=== PATIENT | female | born 1965 | race Caucasian/White ===

== ENCOUNTER 2017-10-29 11:07 | Emergency (ER) | payer BC ==
[2017-10-29 13:00] VITALS: BP 143/78
--- NOTE | 2017-10-29 13:32 | UC ---
Dental HPI - HPI Summary HPI Summary: right upper gum swelling has two decayed molars that she waiting until November ( after school is finished) - History of Current Complaint Chief Complaint: UCDentalProblem Stated Complaint: ORAL COMPLAINT Time Seen by Provider: 10/29/17 13:27 Hx Obtained From: Patient ?: No Onset/Duration: Gradual Onset, Lasting Days, Worse Since - past 2-3 days Severity: Mild Pain Intensity: 4 Pain Scale Used: 0-10 Numeric Alleviating Factor(s): Nothing Related History: Previous Dental Care on Same Tooth, Swelling - Allergies/Home Medications Allergies/Adverse Reactions: Allergies Allergy/AdvReac Type Severity Reaction Status Date / Time No Known Allergies Allergy Verified 10/29/17 13:00 Home Medications: Home Medications Cyanocobalamin INJ * [Vitamin B12 INJ *] 1,000 mcg IM MONTHLY 10/29/17 [History Confirmed 10/29/17] PMH/Surg Hx/FS Hx/Imm Hx Previously Healthy: Yes - Surgical History Surgical History: Yes Surgery Procedure, Year, and Place: ORIF LEFT FIBULA. OVARIAN CYST REMOVAL. TONISLLECTOMY - Family History Known Family History: Positive: Cardiac Disease - Social History Occupation: Employed Full-time Lives: With Family Alcohol Use: Occasionally Substance Use Type: None Smoking Status (MU): Never Smoked Tobacco Have You Smoked in the Last Year: No Review of Systems Constitutional: Negative Skin: Negative Eyes: Negative ENT: Dental Pain - pain and swelling right upper gum Respiratory: Negative Cardiovascular: Negative Gastrointestinal: Negative Genitourinary: Negative Motor: Negative Neurovascular: Negative Musculoskeletal: Negative Neurological: Negative Psychological: Negative Is Patient Immunocompromised?: No All Other Systems Reviewed And Are Negative: Yes Physical Exam Triage Information Reviewed: Yes Appearance: Well-Appearing, No Pain Distress, Well-Nourished Vital Signs: Initial Vital Signs Temp 97.7 F 10/29/17 12:51 Pulse 57 10/29/17 12:51 Resp 16 10/29/17 12:51 BP 143/78 10/29/17 12:51 Pulse Ox 100 10/29/17 12:51 Vital Signs Reviewed: Yes Eye Exam: Normal Eyes: Positive: Conjunctiva Clear ENT Exam: Normal ENT: Positive: Normal ENT inspection, Hearing grossly normal, Pharynx normal, TMs normal, Dental tenderness, Uvula midline. Negative: Nasal congestion, Trismus, Muffled voice, Hoarse voice, Sinus tenderness Dental Exam: Other Dental: Positive: Percussion Tenderness @ - right upper molars, Gross Decay/ Caries @ - right upper molars, Abscess @ - right upper gum Neck exam: Normal Neck: Positive: Supple, Nontender, No Lymphadenopathy Respiratory Exam: Normal Respiratory: Positive: Chest non-tender, Lungs clear, Normal breath sounds, No respiratory distress, No accessory muscle use Cardiovascular Exam: Normal Cardiovascular: Positive: RRR, No Murmur, Pulses Normal, Brisk Capillary Refill Musculoskeletal Exam: Normal Musculoskeletal: Positive: Strength Intact, ROM Intact, No Edema Neurological Exam: Normal Neurological: Positive: Alert, Muscle Tone Normal Psychological Exam: Normal Skin Exam: Normal Dental Complaint Course/Dx - Course Course Of Treatment: warm compress, amoxicillin, tylenol/ibuprofen follow with dentist - Differential Dx/Diagnosis Provider Diagnoses: elevated bp without dx of hypertension,, dental abscess right upper gum Discharge - Sign-Out/Discharge Documenting (check all that apply): Discharge/Admit/Transfer - Discharge Plan Condition: Stable Disposition: HOME Prescriptions: Amoxicillin PO (*) [Amoxicillin 500 MG CAP*] 500 mg PO TID 10 Days #30 cap Patient Education Materials: Dental Abscess (ED), Hypertension (ED), Warm Compress or Soak (ED) Referrals: Sujatha Astorga MD [Primary Care Provider] - 2 Weeks Additional Instructions: Follow with dentist as planned - Billing Disposition and Condition Condition: STABLE Disposition: HOME
== END 2017-10-29 13:45 | disposition home or self-care (01) ==
LOC: UCCORT 11:07
DX: K05.219 Aggressive periodontitis, localized, unspecified severity (principal); R03.0 Elevated blood-pressure reading, without diagnosis of hypertension
CPT/HCPCS: 99211; G0463

== ENCOUNTER 2018-03-08 13:08 | Emergency (ER) | payer BC ==
[2018-03-08 13:34] VITALS: BP 163/79
--- NOTE | 2018-03-08 13:57 | UC ---
Skin Complaint HPI - HPI Summary HPI Summary: Patient presents complaining of some soreness to her left arm, left arm pit and left scapular area for the past 4 days. "it feels like a sunburn". Today, she noted a small area for rash to her left upper arm. 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 She is here to have the area checked. She has no associated fever or malaise. She denies any overuse of that arm. She has had chickenpox as a child but has never had shingles. She denies any associated contact with weeds and has no other complaints. Patient works alone out of her office and is not exposed to the children. - History of Current Complaint Chief Complaint: UCSkin Stated Complaint: SKIN COMPLAINT Hx Obtained From: Patient Onset/Duration: Gradual Onset Timing: Constant Pain Intensity: 0 Aggravating Factor(s): Nothing Alleviating Factor(s): Nothing Associated Signs & Symptoms: Positive: Rash - Allergy/Home Medications Allergies/Adverse Reactions: Allergies Allergy/AdvReac Type Severity Reaction Status Date / Time No Known Allergies Allergy Verified 03/08/18 13:28 Home Medications: Home Medications Aspirin/Acetaminophen/Caffeine [Excedrin Migraine Caplet] 1 each PO ONCE PRN 06/13 [History Confirmed 03/08/18] Review of Systems Constitutional: Negative Skin: Rash Eyes: Negative ENT: Negative Respiratory: Negative Cardiovascular: Negative Gastrointestinal: Negative Genitourinary: Negative Motor: Negative Neurovascular: Negative Musculoskeletal: Negative Neurological: Negative Psychological: Negative Is Patient Immunocompromised?: No All Other Systems Reviewed And Are Negative: Yes PMH/Surg Hx/FS Hx/Imm Hx Neurological History: Migraine - Surgical History Surgical History: Yes Surgery Procedure, Year, and Place: ORIF LEFT FIBULA. OVARIAN CYST REMOVAL. TONISLLECTOMY - Family History Known Family History: Positive: Cardiac Disease - Social History Occupation: Employed Full-time Lives: With Family Alcohol Use: None Substance Use Type: None Smoking Status (MU): Never Smoked Tobacco Have You Smoked in the Last Year: No - Immunization History Vaccination Up to Date: Yes Physical Exam Triage Information Reviewed: Yes Appearance: Well-Appearing Vital Signs: Initial Vital Signs Temp 98 F 03/08/18 13:29 Pulse 64 03/08/18 13:29 Resp 16 03/08/18 13:29 BP 163/79 03/08/18 13:29 Pulse Ox 100 03/08/18 13:29 Vital Signs Reviewed: Yes Eyes: Positive: Conjunctiva Clear ENT: Positive: Pharynx normal, TMs normal. Negative: Nasal congestion, Nasal drainage Neck: Positive: Supple, Nontender, No Lymphadenopathy Respiratory: Positive: Lungs clear, Normal breath sounds Cardiovascular: Positive: RRR, No Murmur Abdomen Description: Positive: Nontender, No Organomegaly, Soft Bowel Sounds: Positive: Present Musculoskeletal: Positive: ROM Intact Neurological: Positive: Alert Psychological: Positive: Age Appropriate Behavior Skin Exam: Normal, Other - The left upper arm has a small cluster of tiny linear vesicles. The skin of her left upper extremity and her trunk was Almazan for additional exam and there is no other rash. Course/Dx - Course Course Of Treatment: Repaet BP 142/74. Will have it rechecked on f/u. The rash is not typical of shingles it is a small patch of linear vesicles which raises concern for a contact dermatitis; however, the history of the vague discomfort in the area does raise concern for shingles. I'm going to start the patient on Famvir in the event that this is early onset of shingles and more larger vesicles evolve plus I'm going to treat the local rash with a topical steroid cream as it is itching. Patient is been advised that if this rash continues to evolve that she should stop the steroid cream immediately. She's been advised to seek close follow up with her primary care physician for recheck as well. Patient works out of an isolated office the second did not remove her from work - Diagnoses Provider Diagnoses: Acute rash left upper arm. Possible viral exanthem versus contact dermatitis. Discharge - Sign-Out/Discharge Documenting (check all that apply): Patient Departure All imaging exams completed and their final reports reviewed: No Studies - Discharge Plan Condition: Stable Disposition: HOME Prescriptions: Famciclovir(NF) [Famvir(NF)] 500 mg PO TID #21 tab Triamcinolone 0.1% CREAM (NF) [Kenalog 0.1% Cream (NF)] 1 applic .SEE ORDER BID 7 Days #1 applic Patient Education Materials: Shingles (ED), Acute Rash (ED) Referrals: Sujatha Astorga MD [Primary Care Provider] - 5 Days - Billing Disposition and Condition Condition: STABLE Disposition: Home
== END 2018-03-08 14:05 | disposition home or self-care (01) ==
LOC: UCCORT 13:08
DX: R21 Rash and other nonspecific skin eruption (principal)
CPT/HCPCS: 99212; G0463

== ENCOUNTER 2018-03-12 17:15 | Emergency (ER) | payer BC ==
--- OUTSIDE RECORDS SUMMARY | 2018-03-12 17:39 | XMS REPORT ---
:1965 External Reference #:[id number] Author Organization [facility] Address [address], [address] [place] [address] Phone [phone] Care Team Providers Name Role Phone Sujatha Astorga MD Care Team Information Deck Cadet Unavailable Sujatha Astorga MD Primary Care Physician Unavailable Payers Type Date Identification Numbers Payment Provider Subscriber Commercial Effective: Policy Number: Brayan Light 2009 [id number] Group Name: [employer] Enhanced Benefits [address] [address] PayID: [id number] KVNG Saeed [id number] Workers Compensation Group Name: Workers Amanda Light Compensation PayID: [id number] [address] [address] [place] [address] Problems Date Description Provider Status Onset: 11/19/2016 Iron deficiency Shayy Kulkarni DO Active Onset: 11/19/2016 Anemia Shayy Kulkarni DO Active Onset: 11/24/2016 Screening for malignant neoplasm of Pal Chen MD Active colon Onset: 11/30/2016 Iron deficiency anemia Shayy Kulkarni DO Active Onset: 11/30/2016 Vitamin D deficiency Shayy Kulkarni DO Active Onset: 11/30/2016 Vitamin B deficiency Shayy Kulkarni DO Active Onset: 01/05/2017 Diaphragmatic hernia Pal Chen MD Active Onset: 01/05/2017 Gastroduodenitis Pal Chen MD Active Onset: 01/05/2017 Duodenitis Pal Chen MD Active Onset: 01/05/2017 Benign neoplasm of colon Pal Chen MD Active Onset: 01/05/2017 Diverticular disease of colon Pal Chen MD Active Onset: 01/05/2017 First degree hemorrhoids Pal Chen MD Active Onset: 02/11/2017 Abdominal pain Pal Chen MD Active Onset: 02/11/2017 Nausea and vomiting Pal Chen MD Active Onset: 04/01/2017 Abdominal tenderness of left lower Pal Chen MD Active quadrant Onset: 04/01/2017 Vascular insufficiency of intestine Pal Chen MD Active Family History Date Family Member(s) Problem(s) Comments General Non Contributory Father Hypertension Mother Hypertension Mother Hypothyroidism Social History Type Date Description Comments Marital Status Patient is Home Environment Lives Alone 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 Working Smokeless Tobacco Never Used Smokeless Tobacco ETOH Use Rarely consumes alcohol Smoking Patient denies history of smoking Recreational Drug Use Denies Drug Use Daily Caffeine Consumes on average 4 cups of regular coffee per day Allergies, Adverse Reactions, Alerts Date Description Reaction Status Severity Comments 11/19/2016 NKDA active Medications Medication Date Status Form Strength Qnty SIG Indications Ordering Provider Pantoprazole 12/21/ Active Tablets DR 20mg 90tabs 1 by mouth Pal Sodium 2016 every day MD Gustavo every morning Iron Infusions / Active prn Unknown 0000 Ondansetron 02/11/ Hx Tablets 4mg 90tabs 1 tab by R11.2 Pal 2016 - Dispers mouth three MD Gustavo 06/15/ times a day 2016 as needed Vitamin D 11/30/ Hx Capsules [id number] 6caps 1 cap by Boufal, (Ergocalcifero 2017 mouth once Shayy, l) a week DO No Active 11/24/ Hx Unknown Medications 2016 - 2016 Golytely 11/24/ Hx Solution 236gm 4000ml drink half Z12.11 Pal 2016 - Rec the evening MD Gustavo 01/04/ before and 2017 half the morning of the procedure (1 cup every 10') Dulcolax 11/24/ Hx Tablets DR 5mg 4tabs 4 tablets Z12.11 Pal 2016 - taken a 8pm MD Gustavo 01/04/ the day 2016 before the procedure Magnesium 11/24/ Hx Solution 1.745GM/30 296ml 1 bottle po Z12.11 Pal Citrate 2016 - ML x one as MD Gustavo 01/04/ directed 2017 Ferrous / Hx Tablets 325(65Fe) 1 by mouth Unknown Sulfate 0000 mg every day Medications Administered in Office Medication Date Status Form Strength Qnty SIG Indications Ordering Provider Vitamin B12 Administered Injection Boufal, Injection 1000 017 Shayy, mcg/Ml DO Vitamin B12 Administered Injection Boufal, Injection 1000 017 Shayy, mcg/Ml DO Vital Signs Date Vital Result Comment 08/17/2017 BP Systolic 155 mmHg BP Diastolic 80 mmHg Body Temperature 97.6 F Heart Rate 68 /min Respiratory Rate 16 /min Weight 166.00 lb O2 % BldC Oximetry 97 % Pain Level 0 06/15/2017 BP Systolic 140 mmHg BP Diastolic 84 mmHg Body Temperature 96.8 F Heart Rate 53 /min Weight 167.12 lb O2 % BldC Oximetry 97 % 04/01/2017 BP Systolic Sitting Left Arm 122 mmHg BP Diastolic Sitting Left Arm 76 mmHg Heart Rate 57 /min Respiratory Rate 16 /min Height 65 inches 5'5" Weight 183.00 lb BMI (Body Mass Index) 30.4 kg/m2 BSA (Body Surface Area) 1.90 m2 [place] body weight in kilograms 57 02/15/2017 BP Systolic 126 mmHg BP Diastolic 77 mmHg Body Temperature 97.7 F Heart Rate 56 /min Weight 190.12 lb O2 % BldC Oximetry 96 % 02/11/2017 BP Systolic Sitting Left Arm 150 mmHg BP Diastolic Sitting Left Arm 90 mmHg Heart Rate 56 /min Respiratory Rate 16 /min Height 64 inches 5'4" Weight 193.00 lb BMI (Body Mass Index) 33.1 kg/m2 BSA (Body Surface Area) 1.93 m2 [place] body weight in kilograms 54 02/01/2017 BP Systolic 140 mmHg BP Diastolic 69 mmHg Body Temperature 98.6 F Heart Rate 55 /min Respiratory Rate 20 /min O2 % BldC Oximetry 95 % Pain Level 0 01/25/2017 BP Systolic 149 mmHg BP Diastolic 76 mmHg Body Temperature 98.6 F Heart Rate 59 /min Respiratory Rate 18 /min O2 % BldC Oximetry 95 % Pain Level 0 01/05/2017 BP Systolic Sitting Left Arm 120 mmHg BP Diastolic Sitting Left Arm 72 mmHg Heart Rate 69 /min Respiratory Rate 16 /min Height 66 inches 5'6" Weight 201.00 lb BMI (Body Mass Index) 32.4 kg/m2 BSA (Body Surface Area) 2.00 m2 [place] body weight in kilograms 59 01/04/2017 BP Systolic 141 mmHg BP Diastolic 84 mmHg Body Temperature 97.7 F Heart Rate 73 /min Weight 200.12 lb O2 % BldC Oximetry 96 % 11/30/2016 BP Systolic 155 mmHg BP Diastolic 89 mmHg Body Temperature 97.1 F Heart Rate 66 /min Weight 202.25 lb O2 % BldC Oximetry 96 % 11/24/2016 BP Systolic Sitting Left Arm 138 mmHg BP Diastolic Sitting Left Arm 82 mmHg Heart Rate 76 /min Respiratory Rate 16 /min Height 64.5 inches 5'4.50" Weight 199.00 lb BMI (Body Mass Index) 33.6 kg/m2 BSA (Body Surface Area) 1.96 m2 [place] body weight in kilograms 56 11/19/2016 BP Systolic 130 mmHg BP Diastolic 78 mmHg Body Temperature 98.1 F Heart Rate 67 /min Respiratory Rate 16 /min Height 64.5 inches 5'4.50" Weight 201.00 lb BMI (Body Mass Index) 34.0 kg/m2 BSA (Body Surface Area) 1.97 m2 [place] body weight in kilograms 56 O2 % BldC Oximetry 95 % Results Test Date Test Result H/L Range Note CBS W/Automated Diff 08/17/2017 White Blood Count 7.5 K/uL 3.1-10.7 1 Red Blood Count 4.61 M/uL 3.90-5.40 1 Hemoglobin 14.1 gm/dL 11.6-15.8 1 Hematocrit 42.2 % 36.0-46.1 1 Mean Cell Volume 91.5 fl 80.9-99.0 1 Mean Corpuscular HGB 30.6 pg 25.9-32.7 1 Mean Corpuscular HGB Conc 33.4 g/dL 30.8-34.3 1 Platelet Count 265 K/uL 155-360 1 Red Cell Distri Width SD 43.4 fl 3-47 1 Red Cell Distri Width %CV 13.3 % 11.7-14.4 1 Mean Platelet Volume 10.2 fL 8.9-12.4 1 Neut% 50.7 % 40.4-72.8 1 Lymph % 41.1 % 20.0-42.0 1 Lea % 6.4 % 4.3-13.2 1 Eo% 1.5 % 0.0-6.6 1 Bas% 0.3 % 0.0-1.1 1 Neut# 3.82 K/uL 1.8-7.0 1 Lymph # 3.09 K/uL 1.0-4.0 1 Lea # 0.48 K/uL 0.3-0.9 1 Eos # 0.11 K/uL 0.0-0.5 1 Baso # 0.02 K/uL 0.0-0.1 1 Comprehensive Metabolic Panel 08/17/2017 Glucose 84 mg/dL 74-106 1 BUN 17 mg/dL 7-18 1 Creatinine 0.7 mg/dL 0.6-1.3 1 Glom Filtration Rate, Estimate >60 mL/min >60 1 If >60 mL/min >60 1, 2 BUN/Creat 24.2 ratio 1 Sodium 143 mmol/L 136-145 1 Potassium 4.1 mmol/L 3.5-5.1 1 Chloride 108 mmol/L High 98-107 1 Carbon Dioxide 29 mmol/L 21-32 1 Anion Gap 6 mEq/L Low 8-16 1 Calcium 9.1 mg/dL 8.5-10.1 1 Total Protein 7.6 g/dL 6.4-8.2 1 Albumin 3.7 g/dL 3.4-5.0 1 Globulin 3.9 g/dL 1.9-4.3 1 Alb/Glob 0.9 ratio 1 Bilirubin,Total 0.3 mg/dL 0.2-1.0 1 Sgot/Ast 14 U/L Low 15-37 1, 3 SGPT/Alt 14 U/L 12-78 1 Alkaline Phosphatase 93 U/L 45-117 1 Iron-Tibc-%Sat 08/17/2017 Serum Iron 74 g/dL 50-170 1 Total Iron Binding Capacity 326 g/dL 250-450 1 Transferrin %Saturation 23 % 12-57 1 Laboratory test finding 08/17/2017 Ferritin 27 ng/mL 8-252 1 Vitamin B12 And Folate 08/17/2017 Vitamin B12 615 pg/mL 193-986 1 Folic Acid 16.0 ng/mL 3.1-17.5 1 Laboratory test 08/17/2017 Vitamin D,25-Hydroxy 24.4 ng/mL Low 30.0-100.0 1, 4 finding Laboratory test 04/01/2017 C1 Esterase Inhibitor > 86 %meanno . 5, 6 finding Function C1 Esterase Inhibitor 35 mg/dL 21-39 5 Complement C4, Serum 37 mg/dL 14-44 5 C-Reactive Protein,Quant < 2.9 mg/L <3.0 5 Sedimentation Rate 11 mm/hr 0-30 5, 7 Vitamin B12 And Folate 03/22/2017 Vitamin B12 1123 pg/mL High 193-986 8 Folic Acid 29.6 ng/mL High 3.1-17.5 8 Laboratory test finding 03/22/2017 Ferritin 57 ng/mL 8-252 8 Iron-Tibc-%Sat 03/22/2017 Serum Iron 99 g/dL 50-170 8 Total Iron Binding Capacity 319 g/dL 250-450 8 Transferrin %Saturation 31 % 12-57 8 Comprehensive Metabolic Panel 03/22/2017 Glucose 79 mg/dL 74-106 8 BUN 13 mg/dL 7-18 8 Creatinine 0.8 mg/dL 0.6-1.3 8 Glom Filtration Rate, Estimate >60 mL/min >60 8 If >60 mL/min >60 8, 9 BUN/Creat 16.2 ratio 8 Sodium 141 mmol/L 136-145 8 Potassium 4.8 mmol/L 3.5-5.1 8 Chloride 107 mmol/L 98-107 8 Carbon Dioxide 28 mmol/L 21-32 8 Anion Gap 6 mEq/L Low 8-16 8 Calcium 9.5 mg/dL 8.5-10.1 8 Total Protein 8.1 g/dL 6.4-8.2 8 Albumin 3.8 g/dL 3.4-5.0 8 Globulin 4.3 g/dL 1.9-4.3 8 Alb/Glob 0.9 ratio 8 Bilirubin,Total 0.4 mg/dL 0.2-1.0 8 Sgot/Ast 17 U/L 15-37 8 SGPT/Alt 20 U/L 12-78 8 Alkaline Phosphatase 103 U/L 45-117 8 CBS W/Automated Diff 03/22/2017 White Blood Count 7.5 K/uL 3.1-10.7 8 Red Blood Count 5.04 M/uL 3.90-5.40 8 Hemoglobin 14.9 gm/dL 11.6-15.8 8 Hematocrit 45.7 % 36.0-46.1 8 Mean Cell Volume 90.7 fl 80.9-99.0 8 Mean Corpuscular HGB 29.6 pg 25.9-32.7 8 Mean Corpuscular HGB Conc 32.6 g/dL 30.8-34.3 8 Platelet Count 238 K/uL 150-400 8 Red Cell Distri Width SD 47.2 fl High 3-47 8 Red Cell Distri Width %CV 14.8 % High 11.7-14.4 8 Mean Platelet Volume 11.2 fL 8.9-12.4 8 Neut% 58.4 % 40.4-72.8 8 Lymph % 32.7 % 20.0-42.0 8 Lea % 6.9 % 4.3-13.2 8 Eo% 1.9 % 0.0-6.6 8 Bas% 0.1 % 0.0-1.1 8 Neut# 4.39 K/uL 1.8-7.0 8 Lymph # 2.46 K/uL 1.0-4.0 8 Lea # 0.52 K/uL 0.3-0.9 8 Eos # 0.14 K/uL 0.0-0.5 8 Baso # 0.01 K/uL 0.0-0.1 8 CBS W/Automated Diff 03/21/2017 White Blood Count 5.5 K/uL 3.1-10.7 10 Red Blood Count 5.02 M/uL 3.90-5.40 10 Hemoglobin 14.7 gm/dL 11.6-15.8 10 Hematocrit 45.3 % 36.0-46.1 10 Mean Cell Volume 90.2 fl 80.9-99.0 10 Mean Corpuscular HGB 29.3 pg 25.9-32.7 10 Mean Corpuscular HGB Conc 32.5 g/dL 30.8-34.3 10 Platelet Count 246 K/uL 150-400 10 Red Cell Distri Width SD 46.6 fl 3-47 10 Red Cell Distri Width %CV 14.4 % 11.7-14.4 10 Mean Platelet Volume 10.8 fL 8.9-12.4 10 Neut% 51.0 % 40.4-72.8 10 Lymph % 40.7 % 20.0-42.0 10 Lea % 6.1 % 4.3-13.2 10 Eo% 2.0 % 0.0-6.6 10 Bas% 0.2 % 0.0-1.1 10 Neut# 2.78 K/uL 1.8-7.0 10 Lymph # 2.22 K/uL 1.0-4.0 10 Lea # 0.33 K/uL 0.3-0.9 10 Eos # 0.11 K/uL 0.0-0.5 10 Baso # 0.01 K/uL 0.0-0.1 10 CBS W/Automated Diff 02/11/2017 White Blood Count 6.7 K/uL 3.1-10.7 11 Red Blood Count 4.83 M/uL 3.90-5.40 11 Hemoglobin 14.1 gm/dL 11.6-15.8 11 Hematocrit 43.3 % 36.0-46.1 11 Mean Cell Volume 89.6 fl 80.9-99.0 11 Mean Corpuscular HGB 29.2 pg 25.9-32.7 11 Mean Corpuscular HGB Conc 32.6 g/dL 30.8-34.3 11 Platelet Count 261 K/uL 150-400 11 Red Cell Distri Width SD 47.1 fl High 3-47 11 Red Cell Distri Width %CV 15.3 % High 11.7-14.4 11 Mean Platelet Volume 10.8 fL 8.9-12.4 11 Neut% 54.7 % 40.4-72.8 11 Lymph % 37.5 % 20.0-42.0 11 Lea % 6.5 % 4.3-13.2 11 Eo% 1.0 % 0.0-6.6 11 Bas% 0.3 % 0.0-1.1 11 Neut# 3.68 K/uL 1.8-7.0 11 Lymph # 2.53 K/uL 1.0-4.0 11 Lea # 0.44 K/uL 0.3-0.9 11 Eos # 0.07 K/uL 0.0-0.5 11 Baso # 0.02 K/uL 0.0-0.1 11 Comprehensive Metabolic Panel 02/11/2017 Glucose 77 mg/dL 74-106 11 BUN 13 mg/dL 7- 11 Creatinine 0.7 mg/dL 0.6-1.3 11 Glom Filtration Rate, Estimate >60 mL/min >60 11 If >60 mL/min >60 11, 12 BUN/Creat 18.5 ratio 11 Sodium 140 mmol/L 136-145 11 Potassium 4.1 mmol/L 3.5-5.1 11 Chloride 107 mmol/L 98-107 11 Carbon Dioxide 24 mmol/L 21-32 11 Anion Gap 9 mEq/L 8-16 11 Calcium 9.4 mg/dL 8.5-10.1 11 Total Protein 8.3 g/dL High 6.4-8.2 11 Albumin 4.0 g/dL 3.4-5.0 11 Globulin 4.3 g/dL 1.9-4.3 11 Alb/Glob 0.9 ratio 11 Bilirubin,Total 0.3 mg/dL 0.2-1.0 11 Sgot/Ast 9 U/L Low 15-37 11, 13 SGPT/Alt 19 U/L 12-78 11 Alkaline Phosphatase 95 U/L 45-117 11 Iron-Tibc-%Sat 02/11/2017 Serum Iron 59 g/dL 50-170 11 Total Iron Binding Capacity 341 g/dL 250-450 11 Transferrin %Saturation 17 % 12-57 11 Laboratory test finding 02/11/2017 Ferritin 75 ng/mL 8-252 11 Vitamin B12 And Folate 02/11/2017 Vitamin B12 821 pg/mL 193-986 11 Folic Acid 38.4 ng/mL High 3.1-17.5 11 Vitamin B12 And Folate 01/25/2017 Vitamin B12 965 pg/mL 193-986 14 Folic Acid 27.5 ng/mL High 3.1-17.5 14 CBS W/Automated Diff 01/25/2017 White Blood Count 6.9 K/uL 3.1-10.7 14 Red Blood Count 4.61 M/uL 3.90-5.40 14 Hemoglobin 13.3 gm/dL 11.6-15.8 14 Hematocrit 41.4 % 36.0-46.1 14 Mean Cell Volume 89.8 fl 80.9-99.0 14 Mean Corpuscular HGB 28.9 pg 25.9-32.7 14 Mean Corpuscular HGB Conc 32.1 g/dL 30.8-34.3 14 Platelet Count 264 K/uL 150-400 14 Red Cell Distri Width SD 49.5 fl High 3-47 14 Red Cell Distri Width %CV 16.8 % High 11.7-14.4 14 Mean Platelet Volume 10.4 fL 8.9-12.4 14 Neut% 57.3 % 40.4-72.8 14 Lymph % 34.5 % 20.0-42.0 14 Lea % 6.3 % 4.3-13.2 14 Eo% 1.6 % 0.0-6.6 14 Bas% 0.3 % 0.0-1.1 14 Neut# 3.94 K/uL 1.8-7.0 14 Lymph # 2.37 K/uL 1.0-4.0 14 Lea # 0.43 K/uL 0.3-0.9 14 Eos # 0.11 K/uL 0.0-0.5 14 Baso # 0.02 K/uL 0.0-0.1 14 Comprehensive Metabolic Panel 01/25/2017 Glucose 87 mg/dL 74-106 14 BUN 11 mg/dL 7-18 14 Creatinine 0.7 mg/dL 0.6-1.3 14 Glom Filtration Rate, Estimate >60 mL/min >60 14 If >60 mL/min >60 14, 15 BUN/Creat 15.7 ratio 14 Sodium 140 mmol/L 136-145 14 Potassium 4.0 mmol/L 3.5-5.1 14 Chloride 106 mmol/L 98-107 14 Carbon Dioxide 28 mmol/L 21-32 14 Anion Gap 6 mEq/L Low 8-16 14 Calcium 9.3 mg/dL 8.5-10.1 14 Total Protein 8.1 g/dL 6.4-8.2 14 Albumin 3.7 g/dL 3.4-5.0 14 Globulin 4.4 g/dL High 1.9-4.3 14 Alb/Glob 0.8 ratio 14 Bilirubin,Total 0.3 mg/dL 0.2-1.0 14 Sgot/Ast 17 U/L 15-37 14 SGPT/Alt 22 U/L 12-78 14 Alkaline Phosphatase 101 U/L 45-117 14 Iron-Tibc-%Sat 01/25/2017 Serum Iron 53 g/dL 50-170 14 Total Iron Binding Capacity 380 g/dL 250-450 14 Transferrin %Saturation 14 % 12-57 14 Laboratory test finding 01/25/2017 Ferritin 62 ng/mL 8-252 14 Laboratory test finding 12/27/2016 LDH 149 U/L 84-246 16 Reticulocyte 12/27/2016 Retic % 0.8 % 0.5-1.8 16 Count,Automated Homocyst(E)Ine, P/S 12/27/2016 Homocyst(e)ine, P/S 8.7 umol/L 0.0-15.0 16, 17 Laboratory test finding 12/27/2016 Vitamin 39.3 ng/mL 30.0-100.0 16, 18 D,25-Hydroxy Methylmalonic Acid (S) 79 nmol/L 0-378 16, 19 Vitamin B12 And Folate 12/27/2016 Vitamin B12 513 pg/mL 193-986 16 Folic Acid 45.2 ng/mL High 3.1-17.5 16 Laboratory test finding 12/27/2016 Ferritin 14 ng/mL 8-252 16 Iron-Tibc-%Sat 12/27/2016 Serum Iron 35 g/dL Low 50-170 16 Total Iron Binding Capacity 403 g/dL 250-450 16 Transferrin %Saturation 9 % Low 12-57 16 Comprehensive Metabolic Panel 12/27/2016 Glucose 72 mg/dL Low 74-106 16 BUN 14 mg/dL 7-18 16 Creatinine 0.6 mg/dL 0.6-1.3 16 Glom Filtration Rate, Estimate >60 mL/min >60 16 If >60 mL/min >60 16, 20 BUN/Creat 23.3 ratio 16 Sodium 142 mmol/L 136-145 16 Potassium 4.0 mmol/L 3.5-5.1 16 Chloride 108 mmol/L High 98-107 16 Carbon Dioxide 27 mmol/L 21-32 16 Anion Gap 7 mEq/L Low 8-16 16 Calcium 8.9 mg/dL 8.5-10.1 16 Total Protein 7.9 g/dL 6.4-8.2 16 Albumin 3.6 g/dL 3.4-5.0 16 Globulin 4.3 g/dL 1.9-4.3 16 Alb/Glob 0.8 ratio 16 Bilirubin,Total 0.3 mg/dL 0.2-1.0 16 Sgot/Ast 14 U/L Low 15-37 16, 21 SGPT/Alt 20 U/L 12-78 16 Alkaline Phosphatase 106 U/L 45-117 16 CBS W/Automated Diff 12/27/2016 White Blood Count 6.8 K/uL 3.1-10.7 16 Red Blood Count 4.64 M/uL 3.90-5.40 16 Hemoglobin 12.7 gm/dL 11.6-15.8 16 Hematocrit 40.3 % 36.0-46.1 16 Mean Cell Volume 86.9 fl 80.9-99.0 16 Mean Corpuscular HGB 27.4 pg 25.9-32.7 16 Mean Corpuscular HGB Conc 31.5 g/dL 30.8-34.3 16 Platelet Count 314 K/uL 150-400 16 Red Cell Distri Width SD 67.0 fl High 3-47 16 Red Cell Distri Width %CV 21.3 % High 11.7-14.4 16 Mean Platelet Volume 10.0 fL 8.9-12.4 16 Neut% 56.6 % 40.4-72.8 16 Lymph % 34.8 % 20.0-42.0 16 Lea % 6.9 % 4.3-13.2 16 Eo% 1.6 % 0.0-6.6 16 Bas% 0.1 % 0.0-1.1 16 Neut# 3.86 K/uL 1.8-7.0 16 Lymph # 2.38 K/uL 1.0-4.0 16 Lea # 0.47 K/uL 0.3-0.9 16 Eos # 0.11 K/uL 0.0-0.5 16 Baso # 0.01 K/uL 0.0-0.1 16 Laboratory test finding 11/24/2016 LDH 175 U/L 84-246 22 Slide Review (SEE NOTE) 22, 23 Reticulocyte Count,Automated 11/24/2016 Retic % 1.1 % 0.5-1.8 22 Celiac Disease Comp AB Profile 11/24/2016 Immunoglobulin A 423 mg/dL High 87-352 24 Antigliadin Abs, IgG 4 units 0-19 24, 25 Antigliadin Abs, IgA 8 units 0-19 24, 26 Endomysial IgA Antibody Negative Negative 24 t-Transglutaminase IgA <2 U/mL 0-3 24, 27 t-Transglutaminase IgG <2 U/mL 0-5 24, 28 CBS W/Automated Diff 11/24/2016 White Blood Count 5.7 K/uL 3.1-10.7 29 Red Blood Count 4.76 M/uL 3.90-5.40 29 Hemoglobin 11.9 gm/dL 11.6-15.8 29 Hematocrit 39.5 % 36.0-46.1 29 Mean Cell Volume 83.0 fl 80.9-99.0 29 Mean Corpuscular HGB 25.0 pg Low 25.9-32.7 29 Mean Corpuscular HGB Conc 30.1 g/dL Low 30.8-34.3 29 Platelet Count 347 K/uL 150-400 29 Red Cell Distri Width SD 82.4 fl High 3-47 29 Red Cell Distri Width %CV 28.1 % High 11.7-14.4 29 Mean Platelet Volume 9.9 fL 8.9-12.4 29 Neut% 54.6 % 40.4-72.8 29 Lymph % 36.7 % 20.0-42.0 29 Lea % 6.1 % 4.3-13.2 29 Eo% 2.1 % 0.0-6.6 29 Bas% 0.5 % 0.0-1.1 29 Neut# 3.11 K/uL 1.8-7.0 29 Lymph # 2.09 K/uL 1.0-4.0 29 Lea # 0.35 K/uL 0.3-0.9 29 Eos # 0.12 K/uL 0.0-0.5 29 Baso # 0.03 K/uL 0.0-0.1 29 Comprehensive Metabolic Panel 11/24/2016 Glucose 87 mg/dL 74-106 29 BUN 16 mg/dL 7-18 29 Creatinine 0.7 mg/dL 0.6-1.3 29 Glom Filtration Rate, Estimate >60 mL/min >60 29 If >60 mL/min >60 29, 30 BUN/Creat 22.8 ratio 29 Sodium 143 mmol/L 136-145 29 Potassium 4.3 mmol/L 3.5-5.1 29 Chloride 109 mmol/L High 98-107 29 Carbon Dioxide 26 mmol/L 21-32 29 Anion Gap 8 mEq/L 8-16 29 Calcium 8.9 mg/dL 8.5-10.1 29 Total Protein 7.5 g/dL 6.4-8.2 29 Albumin 3.6 g/dL 3.4-5.0 29 Globulin 3.9 g/dL 1.9-4.3 29 Alb/Glob 0.9 ratio 29 Bilirubin,Total 0.3 mg/dL 0.2-1.0 29 Sgot/Ast 13 U/L Low 15-37 29, 31 SGPT/Alt 21 U/L 12-78 29 Alkaline Phosphatase 96 U/L 45-117 29 Iron-Tibc-%Sat 11/24/2016 Serum Iron 48 g/dL Low 50-170 29 Total Iron Binding Capacity 413 g/dL 250-450 29 Transferrin %Saturation 12 % 12-57 29 Laboratory test finding 11/24/2016 Ferritin 49 ng/mL 8-252 29 Vitamin B12 And Folate 11/24/2016 Vitamin B12 429 pg/mL 193-986 29 Folic Acid 17.7 ng/mL High 3.1-17.5 29 Homocyst(E)Ine, P/S 11/24/2016 Homocyst(e)ine, P/S 8.2 umol/L 0.0-15.0 29, 32 Laboratory test 11/24/2016 Vitamin D,25-Hydroxy 18.7 ng/mL Low 30.0-100.0 29, 33 finding Methylmalonic Acid (S) 105 nmol/L 0-378 29, 34 CBC 11/10/2016 White Blood Count 7.5 K/uL 3.1-10.7 35 Red Blood Count 3.97 M/uL 3.90-5.40 35 Hemoglobin 8.9 gm/dL Low 11.6-15.8 35 Hematocrit 29.8 % Low 36.0-46.1 35 Mean Cell Volume 75.1 fl Low 80.9-99.0 35 Mean Corpuscular HGB 22.4 pg Low 25.9-32.7 35 Mean Corpuscular HGB Conc 29.9 g/dL Low 30.8-34.3 35 Platelet Count 374 K/uL 150-400 35 Red Cell Distri Width %CV 21.8 % High 11.7-14.4 35 Mean Platelet Volume 10.0 fL 8.9-12.4 35 Hct VFr Bld Auto 11/10/2016 Hct VFr Bld Auto 29.8 Low 36.0-46.1 Hgb Bld-mCnc 11/10/2016 Hgb Bld-mCnc 8.9 Low 11.6-15.8 MCH RBC Qn Auto 11/10/2016 MCH RBC Qn Auto 22.4 Low 25.9-32.7 MCHC RBC Auto-mCnc 11/10/2016 MCHC RBC Auto-mCnc 29.9 Low 30.8-34.3 MCV RBC Auto 11/10/2016 MCV RBC Auto 75.1 Low 80.9-99.0 PMV Bld Auto 11/10/2016 PMV Bld Auto 10.0 8.9-12.4 Platelets [#/volume] in 11/10/2016 Platelets [#/volume] in 374 150-400 Blood by Automated count Blood by Automated count RBC # Bld Auto 11/10/2016 RBC # Bld Auto 3.97 3.90-5.40 RDW RBC Auto-Rto 11/10/2016 RDW RBC Auto-Rto 21.8 High 11.7-14.4 WBC # Bld Auto 11/10/2016 WBC # Bld Auto 7.5 3.1-10.7 CBC 11/09/2016 White Blood Count 8.0 K/uL 3.1-10.7 35 Red Blood Count 3.58 M/uL Low 3.90-5.40 35 Hemoglobin 7.9 gm/dL Low 11.6-15.8 35 Hematocrit 26.9 % Low 36.0-46.1 35 Mean Cell Volume 75.1 fl Low 80.9-99.0 35 Mean Corpuscular HGB 22.1 pg Low 25.9-32.7 35 Mean Corpuscular HGB Conc 29.4 g/dL Low 30.8-34.3 35 Platelet Count 384 K/uL 150-400 35 Red Cell Distri Width %CV 21.7 % High 11.7-14.4 35 Mean Platelet Volume 9.7 fL 8.9-12.4 35 Laboratory test finding 11/09/2016 Troponin-I < 0.015 ng/mL 35, 36 CBC 11/09/2016 White Blood Count 7.1 K/uL 3.1-10.7 35 Red Blood Count 3.31 M/uL Low 3.90-5.40 35 Hemoglobin 7.3 gm/dL Low 11.6-15.8 35 Hematocrit 25.0 % Low 36.0-46.1 35 Mean Cell Volume 75.5 fl Low 80.9-99.0 35 Mean Corpuscular HGB 22.1 pg Low 25.9-32.7 35 Mean Corpuscular HGB Conc 29.2 g/dL Low 30.8-34.3 35 Platelet Count 406 K/uL High 150-400 35 Red Cell Distri Width %CV 22.5 % High 11.7-14.4 35 Mean Platelet Volume 9.7 fL 8.9-12.4 35 Basic Metabolic Panel 11/09/2016 Glucose 100 mg/dL 74-106 35 BUN 14 mg/dL 7-18 35 Creatinine 0.7 mg/dL 0.6-1.3 35 Glom Filtration Rate, Estimate >60 mL/min >60 35 If >60 mL/min >60 35, 37 BUN/Creat 20.0 ratio 35 Sodium 143 mmol/L 136-145 35 Potassium 4.3 mmol/L 3.5-5.1 35 Chloride 111 mmol/L High 98-107 35 Carbon Dioxide 27 mmol/L 21-32 35 Anion Gap 5 mEq/L Low 8-16 35 Calcium 8.8 mg/dL 8.5-10.1 35 Laboratory test 11/09/2016 Troponin-I < 0.015 35, 38 finding ng/mL Sodium SerPl-sCnc 11/09/2016 Sodium SerPl-sCnc 143 136-145 Potassium SerPl-sCnc 11/09/2016 Potassium SerPl-sCnc 4.3 3.5-5.1 Anion Gap SerPl-sCnc 11/09/2016 Anion Gap SerPl-sCnc 5 Low 8-16 BUN SerPl-mCnc 11/09/2016 BUN SerPl-mCnc 14 7-18 BUN/Creat SerPl 11/09/2016 BUN/Creat SerPl 20.0 Co2 SerPl-sCnc 11/09/2016 Co2 SerPl-sCnc 27 21-32 Calcium SerPl-mCnc 11/09/2016 Calcium SerPl-mCnc 8.8 8.5-10.1 Chloride SerPl-sCnc 11/09/2016 Chloride SerPl-sCnc 111 High 98-107 Glucose 11/09/2016 Glucose 100 74-106 [Mass/volume] in [Mass/volume] in Serum or Plasma Serum or Plasma Creat SerPl-mCnc 11/09/2016 Creat SerPl-mCnc 0.7 0.6-1.3 Monocytes/100 11/08/2016 Monocytes/100 9 0-10 leukocytes in Blood leukocytes in Blood by Manual count by Manual count Neutrophils # Bld 11/08/2016 Neutrophils # Bld 5.37 1.8-7.0 Auto Auto Neuts [place] NFr 11/08/2016 Neuts [place] NFr 1 0-8 Bld Manual Bld Manual Neuts Seg/leuk NFr 11/08/2016 Neuts Seg/leuk NFr 52 33-73 Bld Manual Bld Manual Polychromasia Bld Ql 11/08/2016 Polychromasia Bld Ql 2+ Smear Smear Prot SerPl-mCnc 11/08/2016 Prot SerPl-mCnc 6.9 6.4-8.2 Prothrombin time 11/08/2016 Prothrombin time 14.1 12.0-14.4 RDW RBC Auto 11/08/2016 RDW RBC Auto 48.5 High 3-47 Serum or plasma 11/08/2016 Serum or plasma 60 26-192 creatine kinase creatine kinase measurement (enzym measurement (enzymatic activity/volume) Serum or plasma iron 11/08/2016 Serum or plasma iron 472 High 250-450 binding capacity binding capacity measurement measurement (mass/volume) Total Cells Counted 11/08/2016 Total Cells Counted 100 Bld Bld Unloinc 11/08/2016 Unloinc Diff Ordered Activated partial 11/08/2016 Activated partial 30.9 23.4-35.0 thromboplastin time thromboplastin time (aPTT) in pl (aPTT) in platelet poor plasma by coagulation assay Alt SerPl-cCnc 11/08/2016 Alt SerPl-cCnc 23 12-78 Alp SerPl-cCnc 11/08/2016 Alp SerPl-cCnc 92 45-117 Stool occult blood 11/08/2016 Stool occult blood Negative Negative Albumin SerPl-mCnc 11/08/2016 Albumin SerPl-mCnc 3.4 3.4-5.0 Albumin/Glob SerPl 11/08/2016 Albumin/Glob SerPl 1.0 Aspartate 11/08/2016 Aspartate 10 Low 15-37 aminotransferase aminotransferase [Enzymatic [Enzymatic activity/vol activity/volume] in Serum or Plasma Basophils [#/volume] 11/08/2016 Basophils [#/volume] 0.03 0.0-0.1 in Blood by in Blood by Automated count Automated count Bilirub SerPl-mCnc 11/08/2016 Bilirub SerPl-mCnc 0.2 0.2-1.0 Blood anisocytosis 11/08/2016 Blood anisocytosis 2+ detection by light detection by light microscopy microscopy Blood hypochromia 11/08/2016 Blood hypochromia 2+ detection by light detection by light microscopy microscopy Blood microcytes 11/08/2016 Blood microcytes 2+ detection by light detection by light microscopy microscopy Blood ovalocytes 11/08/2016 Blood ovalocytes 1+ detection by light detection by light microscopy microscopy Blood platelet 11/08/2016 Blood platelet Slight adequacy detection adequacy detection Increase by light microsc by light microscopy Blood poikilocytosis 11/08/2016 Blood poikilocytosis 1+ detection by light detection by light microscopy microscopy Eosinophil # Bld 11/08/2016 Eosinophil # Bld 0.16 0.0-0.5 Auto Auto Eosinophil % 11/08/2016 Eosinophil % 1 0-5 Globulin Ser 11/08/2016 Globulin Ser 3.5 1.9-4.3 Calc-mCnc Calc-mCnc Inr 11/08/2016 Inr 1.1 0.9-1.1 Iron SerPl-mCnc 11/08/2016 Iron SerPl-mCnc 15 Low 50-170 Iron saturation 11/08/2016 Iron saturation 3 Low 12-57 [Mass Fraction] in [Mass Fraction] in Serum or Plasma Serum or Plasma Lymphocytes 11/08/2016 Lymphocytes 2.81 1.0-4.0 [#/volume] in Blood [#/volume] in Blood by Automated count by Automated count Lymphocytes/100 11/08/2016 Lymphocytes/100 37 20-42 leukocytes in Blood leukocytes in Blood by Manual coun by Manual count Monocytes # Bld Auto 11/08/2016 Monocytes # Bld Auto 0.62 0.3-0.9 1 E61.1 E53.9 D64.9 2 Note: Persistent reduction for 3 months or more in an eGFR <60 mL/min/1.73 m2 defines CKD. Patients with eGFR values >/=60 mL/min/1.73 m2 may also have CKD if evidence of persistent proteinuria is present. The original MDRD equation for estimated GFR is not valid for patients less than 18 years of age. Additional information may be found at www.kdoqi.org. 3 Values below the stated reference ranges of AST and ALT can be seen in normal populations. Clinical correlation is suggested. 4 Vitamin D deficiency has been defined by the [place] [employer] and an Endocrine Society practice guideline as a level of serum 25-OH vitamin D less than 20 ng/mL (1,2). The Endocrine Society went on to further define vitamin D insufficiency as a level between 21 and 29 ng/mL (2). 1. IOM ([place] [employer]). 2010. Dietary reference intakes for calcium and D. [place]: The National Academies Press. 2. Chidi MF, Radha PAYNE, Evelyne HAHN, et al. Evaluation, treatment, and prevention of vitamin D deficiency: an Endocrine Society clinical practice guideline. JCEM. 2010; 96(7):1911-30. Performed at: [facility] [address], [place] [id number] [employer] Layer: Maria Dolores Mario MD, Phone: [phone] 5 R10.682 6 INFCE Result Units: %mean normal Abnormal <41 Equivocal 41 - 67 Normal >67 Performed at: [facility] [address], [place] [id number] [employer] Layer: Maria Dolores Mario MD, Phone: [phone] Performed at: [facility] [id number] [employer] Layer: Luis Daniel Mauricio MD, Phone: [phone] Method: Sediplast Modified Westergren 8 E61.1 E53.9 D64.9 9 Note: Persistent reduction for 3 months or more in an eGFR <60 mL/min/1.73 m2 defines CKD. Patients with eGFR values >/=60 mL/min/1.73 m2 may also have CKD if evidence of persistent proteinuria is present. The original MDRD equation for estimated GFR is not valid for patients less than 18 years of age. Additional information may be found at www.kdoqi.org. 10 UNSPEC ABD PAIN R10.9 (NO DX ON LAB Z02.9) 11 E61.1 D64.9 E53.9 12 Note: Persistent reduction for 3 months or more in an eGFR <60 mL/min/1.73 m2 defines CKD. Patients with eGFR values >/=60 mL/min/1.73 m2 may also have CKD if evidence of persistent proteinuria is present. The original MDRD equation for estimated GFR is not valid for patients less than 18 years of age. Additional information may be found at www.kdoqi.org. 13 Values below the stated reference ranges of AST and ALT can be seen in normal populations. Clinical correlation is suggested. 14 D64.9 E53.9 E61.1 15 Note: Persistent reduction for 3 months or more in an eGFR <60 mL/min/1.73 m2 defines CKD. Patients with eGFR values >/=60 mL/min/1.73 m2 may also have CKD if evidence of persistent proteinuria is present. The original MDRD equation for estimated GFR is not valid for patients less than 18 years of age. Additional information may be found at www.kdoqi.org. 16 E61.1 E53.9 D64.9 17 Performed at: [facility] [id number] [employer] Layer: Maria Dolores Mario MD, Phone: [phone] 18 Vitamin D deficiency has been defined by the [place] [employer] and an Endocrine Society practice guideline as a level of serum 25-OH vitamin D less than 20 ng/mL (1,2). The Endocrine Society went on to further define vitamin D insufficiency as a level between 21 and 29 ng/mL (2). 1. IOM ([place] [employer]). 2010. Dietary reference intakes for calcium and D. [place]: The National Academies Press. 2. Chidi MF, Radha PAYNE, Evelyne HAHN, et al. Evaluation, treatment, and prevention of vitamin D deficiency: an Endocrine Society clinical practice guideline. JCEM. 2011 Dec; 96(7):1911-30. Performed at: [address] [id number] [employer] Layer: Maria Dolores Mario MD, Phone: [phone] 19 Performed at: [facility] [address] [id number] Con[employer] Layer: Luis Daniel Mauricio MD, Phone: [phone] 20 Note: Persistent reduction for 3 months or more in an eGFR <60 mL/min/1.73 m2 defines CKD. Patients with eGFR values >/=60 mL/min/1.73 m2 may also have CKD if evidence of persistent proteinuria is present. The original MDRD equation for estimated GFR is not valid for patients less than 18 years of age. Additional information may be found at www.kdoqi.org. 21 Values below the stated reference ranges of AST and ALT can be seen in normal populations. Clinical correlation is suggested. 22 E61.1,E53.9,D64.9 23 Instrument flagged sample for slide review. Less than 10% Bands seen, no other immature WBC's seen. Platelet estimate=NORMAL 24 D64.9 25 Negative 0 - 19 Weak Positive 20 - 30 Moderate to Strong Positive >30 26 Negative 0 - 19 Weak Positive 20 - 30 Moderate to Strong Positive >30 27 Negative 0 - 3 Weak Positive 4 - 10 Positive >10 Tissue Transglutaminase (tTG) has been identified as the endomysial antigen. Studies have demonstr- ated that endomysial IgA antibodies have over 99% specificity for gluten sensitive enteropathy. 28 Negative 0 - 5 Weak Positive 6 - 9 Positive >9 Performed at: [address] [id number] [employer] Layer: Maria Dolores Mario MD, Phone: [phone] 29 E61.1,E53.9,D64.9 30 Note: Persistent reduction for 3 months or more in an eGFR <60 mL/min/1.73 m2 defines CKD. Patients with eGFR values >/=60 mL/min/1.73 m2 may also have CKD if evidence of persistent proteinuria is present. The original MDRD equation for estimated GFR is not valid for patients less than 18 years of age. Additional information may be found at www.kdoqi.org. 31 Values below the stated reference ranges of AST and ALT can be seen in normal populations. Clinical correlation is suggested. 32 Performed at: [address] [id number] [employer] Layer: Maria Dolores Mario MD, Phone: [phone] 33 Vitamin D deficiency has been defined by the [place] [employer] and an Endocrine Society practice guideline as a level of serum 25-OH vitamin D less than 20 ng/mL (1,2). The Endocrine Society went on to further define vitamin D insufficiency as a level between 21 and 29 ng/mL (2). 1. IOM ([place] [employer]). 2010. Dietary reference intakes for calcium and D. [place]: The National Academies Press. 2. Chidi MF, Radha PAYNE, Evelyne HAHN, et al. Evaluation, treatment, and prevention of vitamin D deficiency: an Endocrine Society clinical practice guideline. JCEM. 2010; 96(7):1911-30. Performed at: [address] [id number] [employer] Layer: Maria Dolores Mario MD, Phone: [phone] 34 Performed at: [address] [id number] [employer] Layer: Luis Daniel Mauricio MD, Phone: [phone] 35 SYMPTOMATIC ANEMIA 36 0.0 - 0.045 ng/mL: Normal 0.046 - 0.5 ng/mL: Suggestive 0.6 - 1.5 ng/mL: Consistent 37 Note: Persistent reduction for 3 months or more in an eGFR <60 mL/min/1.73 m2 defines CKD. Patients with eGFR values >/=60 mL/min/1.73 m2 may also have CKD if evidence of persistent proteinuria is present. The original MDRD equation for estimated GFR is not valid for patients less than 18 years of age. Additional information may be found at www.kdoqi.org. 38 0.0 - 0.045 ng/mL: Normal 0.046 - 0.5 ng/mL: Suggestive 0.6 - 1.5 ng/mL: Consistent Procedures Date CPT Code Description Status 01/04/2017 23820 Theraputic Or Diagnostic Injection Completed 12/21/2016 51804 Colonoscopy With Biopsy Completed 12/21/2016 60071 EGD With Biopsy Completed 11/30/2016 73202 Theraputic Or Diagnostic Injection Completed Encounters Type Date Location Provider CPT E/M Dx Office Visit 08/17/2017 2:30p [place] [address] E61.1 K29.70 Office Visit 06/15/2017 3:45p [place] [address] E61.1 K29.70 Office Visit 04/01/2017 2:30[place] [address] R10.814 K55.9 Office Visit 02/15/2017 3:30p [place] [address] E61.1 K29.70 Office Visit 02/11/2017 1:00p [place] [address] R10.9 R11.2 Office Visit 02/01/2017 2:00p [place] [address] D50.9 E53.9 Office Visit 01/05/2017 1:30[place] [address] D64.9 K44.9 K29.70 K29.80 K63.5 K57.90 K64.0 Office Visit 01/04/2017 3:30p [place] [address] D50.9 E53.9 K29.70 K29.80 K63.5 Office Visit 11/30/2016 3:30p [place] [address] D50.9 E55.9 E53.9 Office Visit 11/24/2016 1:45[place] [address] D64.9 Z12.11 Office Visit 11/19/2016 11:00a [place] [address] D50.9 Plan of Care 08/17/2017 - Shayy Kulkarni, DOE61.1 Iron deficiencyComments:Clinically stable. Did not have any blood work since February. Blood work will be obtained today. She will continue multivitamins.K29.70 Gastritis, unspecified, without bleedingComments:Followed by Dr. Chen
[2018-03-12 18:44] VITALS: BP 142/78
--- NOTE | 2018-03-12 18:57 | UC ---
Abdominal Pain Female HPI - HPI Summary HPI Summary: patient to urgent care this evening with 24 hours of vomiting---cannot even keep down teaspoons of liquid---no fevers today had diarrhea several days ago and dx with singles recently and is on FAmvir. - History of Current Complaint Chief Complaint: UCGI Stated Complaint: NAUSEA Time Seen by Provider: 03/12/18 18:42 Hx Obtained From: Patient ?: No Onset/Duration: Sudden Onset, Lasting Days - 1, Still Present Timing: Constant Pain Intensity: 7 Pain Scale Used: 0-10 Numeric Location: Discrete At: RLQ Radiates: No Character: Colicy, Cramping Aggravating Factor(s): Food Alleviating Factor(s): NPO Associated Signs and Symptoms: Positive: Decreased Appetite, Nausea, Vomiting Allergies/Adverse Reactions: Allergies Allergy/AdvReac Type Severity Reaction Status Date / Time No Known Allergies Allergy Verified 03/12/18 18:34 PMH/Surg Hx/FS Hx/Imm Hx Previously Healthy: No - anemia, gastritis, shingles - Surgical History Surgical History: Yes Surgery Procedure, Year, and Place: ORIF LEFT FIBULA. OVARIAN CYST REMOVAL. TONISLLECTOMY - Family History Known Family History: Positive: Cardiac Disease - Social History Occupation: Employed Full-time Lives: With Family Alcohol Use: None Substance Use Type: None Smoking Status (MU): Never Smoked Tobacco Have You Smoked in the Last Year: No - Immunization History Most Recent Tetanus Shot: UTD Vaccination Up to Date: Yes Review of Systems Constitutional: Chills, Fatigue Skin: Negative Eyes: Negative ENT: Negative Respiratory: Negative Cardiovascular: Negative Gastrointestinal: Abdominal Pain, Vomiting, Nausea Genitourinary: Negative Motor: Negative Neurovascular: Negative Musculoskeletal: Negative Neurological: Negative Psychological: Negative Is Patient Immunocompromised?: No All Other Systems Reviewed And Are Negative: Yes Physical Exam Triage Information Reviewed: Yes Appearance: Well-Nourished, Ill-Appearing, Pain Distress Vital Signs: Initial Vital Signs Temp 98.4 F 03/12/18 18:35 Pulse 69 03/12/18 18:35 Resp 15 03/12/18 18:35 BP 142/78 03/12/18 18:35 Pulse Ox 100 03/12/18 18:35 Vital Signs Reviewed: Yes Eye Exam: Normal Eyes: Positive: Conjunctiva Clear ENT Exam: Normal ENT: Positive: Normal ENT inspection, Hearing grossly normal. Negative: Nasal drainage, Tonsillar exudate, Uvula midline Dental Exam: Normal Neck exam: Normal Neck: Positive: Supple, Nontender, No Lymphadenopathy Respiratory Exam: Normal Respiratory: Positive: Chest non-tender, Lungs clear, Normal breath sounds, No respiratory distress, No accessory muscle use Cardiovascular Exam: Normal Cardiovascular: Positive: RRR, No Murmur, Pulses Normal, Brisk Capillary Refill Abdominal Exam: Other Abdomen Description: Positive: No Organomegaly, Soft, McBurney's Point Tenderness. Negative: CVA Tenderness (R), CVA Tenderness (L) Bowel Sounds: Positive: Hypoactive Musculoskeletal Exam: Normal Musculoskeletal: Positive: Strength Intact, ROM Intact, No Edema Neurological Exam: Normal Neurological: Positive: Alert, Muscle Tone Normal Psychological Exam: Normal Skin Exam: Normal Abd Pain Female Course/Dx - Course Course Of Treatment: NPO-to [facility] Emergency Department for further assessmnet of abdomen pain and vomiting - Differential Dx/Diagnosis Provider Diagnoses: acute nausea/vomiting Discharge - Sign-Out/Discharge Documenting (check all that apply): Patient Departure All imaging exams completed and their final reports reviewed: No Studies - Discharge Plan Condition: Stable Disposition: HOME Patient Education Materials: Acute Nausea and Vomiting (ED) Referrals: Sujatha Astorga MD [Primary Care Provider] - Additional Instructions: Nothing to eat or drink-Please go directly to the emergency department at [facility] for further care - Billing Disposition and Condition Condition: STABLE Disposition: Home
== END 2018-03-12 19:03 | disposition home or self-care (01) ==
LOC: UCCORT 17:15
DX: R11.2 Nausea with vomiting, unspecified (principal)
CPT/HCPCS: 99212; G0463